=== PATIENT | male | born 1970 | race Caucasian/White ===

== ENCOUNTER → 2017-03-04 | Outpatient (CLI) | payer OTHER ==
[2017-03-04 17:43] LABS: ALBUMIN 3.8 GM/DL (3.2-5.2); ALBUMIN/GLOBULIN RATIO 1.03 (1.00-1.93); ALKALINE PHOSPHATASE 95 U/L (45-117); ALT/SGPT 98 U/L (12-78); ANION GAP 8 MEQ/L (8-16); AST/SGOT 45 U/L (15-37); BILIRUBIN,TOTAL 0.6 MG/DL (0.2-1.0); BLOOD UREA NITROGEN 22 MG/DL (7-18); CALCIUM LEVEL 8.8 MG/DL (8.5-10.1); CARBON DIOXIDE LEVEL 29 MEQ/L (21-32); CHLORIDE LEVEL 102 MEQ/L (98-107); CHOLESTEROL LEVEL 208 MG/DL (<200); GLOMERULAR FILTRATION RATE > 60.0 (>60); GLUCOSE, FASTING 111 MG/DL (70-105); POTASSIUM SERUM 4.2 MEQ/L (3.5-5.1); SODIUM LEVEL 139 MEQ/L (136-145); TOTAL PROTEIN 7.5 GM/DL (6.4-8.2); TRIGLYCERIDES LEVEL 212 MG/DL (<150)
[2017-03-04 17:52] LABS: BASO % 0.6 % (0.0-1.0); EOS # 0.1 K/mm3 (0.0-0.50); EOS % 1.7 % (0.0-3.0); LARGE UNSTAINED CELL # 0.3 K/mm3 (0.0-0.4); LARGE UNSTAINED CELL % 4.4 % (0.0-4.0); LYMPH # 1.9 K/mm3 (1.5-4.5); LYMPH % 25.2 % (24.0-44.0); MEAN CORPUSCULAR HEMOGLOBIN 31.3 pg (27.0-33.0); MEAN CORPUSCULAR HGB CONC 34.7 g/dl (32.0-36.5); MEAN CORPUSCULAR VOLUME 90.3 fl (80.0-96.0); MONO # 0.5 K/mm3 (0.0-0.8); NEUTROPHILS # 4.6 K/mm3 (1.8-7.7); NEUTROPHILS % 61.2 % (36.0-66.0); PLATELET COUNT, AUTOMATED 214 k/mm3 (150-450); RED CELL DISTRIBUTION WIDTH 13.2 % (11.5-14.5); WHITE BLOOD COUNT 7.4 K/mm3 (4.0-10.0)
== END ==
LOC: M WUC 08:17
PROVIDERS: ATTEND Family Medicine Addiction Medicine
DX: I10 Essential (primary) hypertension (principal)

== ENCOUNTER → 2019-03-23 | Outpatient (CLI) | payer OTHER ==
[2019-03-23 11:19] LABS: ALBUMIN 3.6 GM/DL (3.2-5.2); ALT/SGPT 146 U/L (12-78); BILIRUBIN,TOTAL 0.4 MG/DL (0.2-1.0); BLOOD UREA NITROGEN 18 MG/DL (7-18); CALCIUM LEVEL 8.8 MG/DL (8.5-10.1); CARBON DIOXIDE LEVEL 30 MEQ/L (21-32); CHLORIDE LEVEL 104 MEQ/L (98-107); CHOLESTEROL LEVEL 188 MG/DL (<200); CHOLESTEROL RISK RATIO 5.875 (<5); CREATININE FOR GFR 1.27 MG/DL (0.70-1.30); GLOMERULAR FILTRATION RATE > 60.0 (>60); GLUCOSE, FASTING 111 MG/DL (70-100); HDL CHOLESTEROL 32 MG/DL (>40); LDL CHOLESTEROL 107 MG/DL (<100); NON-HDL-C 156 MG/DL; POTASSIUM SERUM 4.5 MEQ/L (3.5-5.1); SODIUM LEVEL 141 MEQ/L (136-145); TOTAL PROTEIN 7.6 GM/DL (6.4-8.2); TRIGLYCERIDES LEVEL 245 MG/DL (<150)
== END ==
LOC: M WUC 08:08
PROVIDERS: ATTEND Family Medicine Addiction Medicine
DX: I10 Essential (primary) hypertension (principal); R53.83 Other fatigue; E66.9 Obesity, unspecified

== ENCOUNTER → 2019-04-30 | Outpatient (REF) | payer OTHER ==
[2019-04-30 13:24] LABS: ALBUMIN 3.7 GM/DL (3.2-5.2); ALT/SGPT 87 U/L (12-78); BILIRUBIN,TOTAL 0.5 MG/DL (0.2-1.0); BLOOD UREA NITROGEN 21 MG/DL (7-18); CARBON DIOXIDE LEVEL 26 MEQ/L (21-32); CHLORIDE LEVEL 105 MEQ/L (98-107); CREATININE FOR GFR 1.33 MG/DL (0.70-1.30); GLOMERULAR FILTRATION RATE > 60.0 (>60); GLUCOSE, FASTING 101 MG/DL (70-100); POTASSIUM SERUM 4.2 MEQ/L (3.5-5.1); SODIUM LEVEL 141 MEQ/L (136-145); TOTAL PROTEIN 7.3 GM/DL (6.4-8.2)
== END ==
LOC: M LAB REF 12:40
PROVIDERS: ATTEND Nurse Practitioner Family
DX: R74.8 Abnormal levels of other serum enzymes (principal)

== ENCOUNTER → 2019-06-07 | Outpatient (REF) | payer OTHER ==
[2019-06-07 16:44] LABS: ALT/SGPT 70 U/L (12-78); CREATININE FOR GFR 1.17 MG/DL (0.70-1.30); GLOMERULAR FILTRATION RATE > 60.0 (>60)
== END ==
LOC: M LAB REF 16:16
PROVIDERS: ATTEND Nurse Practitioner Family
DX: R74.8 Abnormal levels of other serum enzymes (principal); R79.89 Other specified abnormal findings of blood chemistry

== ENCOUNTER → 2020-05-08 | Outpatient (REF) | payer OTHER ==
[2020-05-08 13:30] LABS: ALBUMIN 3.9 GM/DL (3.2-5.2); ALT/SGPT 54 U/L (12-78); BILIRUBIN,TOTAL 0.7 MG/DL (0.2-1.0); BLOOD UREA NITROGEN 22 MG/DL (7-18); CALCIUM LEVEL 9.1 MG/DL (8.5-10.1); CARBON DIOXIDE LEVEL 27 MEQ/L (21-32); CHLORIDE LEVEL 106 MEQ/L (98-107); CHOLESTEROL LEVEL 198 MG/DL (<200); CREATININE FOR GFR 1.16 MG/DL (0.70-1.30); GLOMERULAR FILTRATION RATE > 60.0 (>56); GLUCOSE, FASTING 109 MG/DL (70-100); HDL CHOLESTEROL 33 MG/DL (>40); LDL CHOLESTEROL 132 MG/DL (<100); NON-HDL-C 165 MG/DL; POTASSIUM SERUM 4.7 MEQ/L (3.5-5.1); SODIUM LEVEL 139 MEQ/L (136-145); THYROID STIMULATING HORMONE 0.834 uIU/ML (0.358-3.740); TOTAL PROTEIN 7.6 GM/DL (6.4-8.2); TRIGLYCERIDES LEVEL 167 MG/DL (<150)
== END ==
LOC: M LAB REF 11:18
PROVIDERS: ATTEND Family Medicine Addiction Medicine
DX: F41.1 Generalized anxiety disorder (principal); I10 Essential (primary) hypertension

== ENCOUNTER → 2022-09-30 | Outpatient (REF) | payer OTHER ==
[2022-09-30 13:25] LABS: ALKALINE PHOSPHATASE 89 U/L (46-116); ALT/SGPT 90 U/L (7.0-40); AST/SGOT 45 U/L (<34); BILIRUBIN,TOTAL 0.8 MG/DL (0.3-1.2); BLOOD UREA NITROGEN 32 MG/DL (9-23); CALCIUM LEVEL 9.1 MG/DL (8.5-10.1); CARBON DIOXIDE LEVEL 28 MMOL/L (20-31); CHLORIDE LEVEL 107 MMOL/L (98-107); CHOLESTEROL LEVEL 177 MG/DL (<200); CHOLESTEROL RISK RATIO 5.84 (<5); CREATININE FOR GFR 1.13 MG/DL (0.70-1.30); GLOMERULAR FILTRATION RATE > 60.0 (>56); GLUCOSE, FASTING 103 MG/DL (60-100); HDL CHOLESTEROL 30.3 MG/DL (>40); LDL CHOLESTEROL 113.3 MG/DL (<100); NON-HDL-C 147 MG/DL; POTASSIUM SERUM 4.7 MMOL/L (3.5-5.1); SODIUM LEVEL 141 MMOL/L (136-145); TOTAL PROTEIN 7.5 G/DL (5.7-8.2); TRIGLYCERIDES LEVEL 167 MG/DL (<150)
[2022-09-30 14:07] LABS: HEMOGLOBIN A1c 5.7 % (4.0-6.0)
== END ==
LOC: M LAB REF 11:16
PROVIDERS: ATTEND Family Medicine Addiction Medicine
DX: R73.9 Hyperglycemia, unspecified (principal)

== ENCOUNTER 2023-07-05 08:55 | Observation (INO) | payer OTHER ==
[~2023-07-05] VITALS: Ht 167.6 cm; Wt 111.5 kg
[2023-07-05] MEDS ORDERED: OMEP-173 PO (09:12)
[2023-07-05] MEDS ORDERED: CLON-412 PO (09:12)
[2023-07-05] MEDS ORDERED: LOSA100T46 PO (09:12)
[2023-07-05] MEDS ORDERED: MORPHINE 4 MG/ML 1ML VIAL IV ONE ×2 (10:10→11:45)
[2023-07-05] MEDS ORDERED: NS 1,000 ML IV ONE (10:10)
[2023-07-05] MEDS ORDERED: ONDANSETRON 4MG 2ML VIAL IV ONE (10:10)
[2023-07-05] MEDS ORDERED: FAMOTIDINE 20MG/2ML VIAL IVP ONE (10:10)
[2023-07-05 10:41] LABS: BASO # 0.1 10^3/uL (0.0-0.2); BASO % 0.3 % (0.0-1.0); EOS # 0.1 10^3/uL (0.0-0.5); EOS % 0.4 % (0.0-3.0); HEMATOCRIT 50.4 % (42.0-52.0); HEMOGLOBIN 17.1 g/dl (13.5-17.5); LYMPH # 1.5 10^3/uL (1.5-5.0); LYMPH % 9.1 % (24.0-44.0); MEAN CORPUSCULAR HEMOGLOBIN 28.9 pg (27.0-33.0); MEAN CORPUSCULAR HGB CONC 33.9 g/dl (32.0-36.5); MEAN CORPUSCULAR VOLUME 85.3 fl (80.0-96.0); MONO # 1.4 10^3/uL (0.0-0.8); MONO % 8.7 % (2.0-8.0); NEUTROPHILS # 13.4 10^3/uL (1.5-8.5); NEUTROPHILS % 81.1 % (36.0-66.0); PLATELET COUNT, AUTOMATED 246 10^3/uL (150-450); RED BLOOD COUNT 5.91 10^6/uL (4.30-6.10); WHITE BLOOD COUNT 16.6 10^3/uL (4.0-10.0)
[2023-07-05] MEDS ORDERED: ISOVUE-370 76% 100ML VIAL As Ordered ONE (10:45)
[2023-07-05 11:05] LABS: CK-MB VALUE MASS < 1.0 NG/ML (<3.6); LIPASE 81 U/L (12-53)
[2023-07-05 11:07] LABS: ALBUMIN 3.7 G/DL (3.2-5.2); ALKALINE PHOSPHATASE 96 U/L (46-116); ALT/SGPT 62 U/L (7.0-40); AST/SGOT 23 U/L (<34); BILIRUBIN,DIRECT 0.5 MG/DL (<0.4); BILIRUBIN,TOTAL 1.4 MG/DL (0.3-1.2); BLOOD UREA NITROGEN 15 MG/DL (9-23); CALCIUM LEVEL 9.2 MG/DL (8.5-10.1); CARBON DIOXIDE LEVEL 30 MMOL/L (20-31); CHLORIDE LEVEL 102 MMOL/L (98-107); CPK CREATINE PHOSPHOKINASE 125 U/L (46-171); CREATININE FOR GFR 1.04 MG/DL (0.70-1.30); GLOMERULAR FILTRATION RATE > 60.0 (>56); GLUCOSE, FASTING 117 MG/DL (60-100); POTASSIUM SERUM 4.2 MMOL/L (3.5-5.1); SODIUM LEVEL 140 MMOL/L (136-145); TOTAL PROTEIN 7.9 G/DL (5.7-8.2)
[2023-07-05] MEDS ORDERED: MED REC IN PROGRESS XX SCH (11:55)
[2023-07-05] MEDS ORDERED: HOME MED LIST COMPLETE! XX SCH (12:10)
[2023-07-05] MEDS ORDERED: ONDANSETRON 4MG 2ML VIAL IV PRN (12:10)
[2023-07-05] MEDS ORDERED: MORPHINE 1MG/ML IN 0.9% NACL 100ML IV BAG IV PRN (12:15)
[2023-07-05] MEDS ORDERED: NS 1,000 ML IV SCH (12:15)
[2023-07-05] MEDS ORDERED: EPIDURAL/PCA KEYS XX PRN (12:15)
[2023-07-05] MEDS ORDERED: diphenhydrAMINE 50MG/ML VIAL IV PRN (12:15)
[2023-07-05] MEDS ORDERED: NALOXONE INJ 0.4MG/1ML VIAL IV PRN (12:15)
[2023-07-05 12:59] LABS: CHOLESTEROL LEVEL 171 MG/DL (<200); CHOLESTEROL RISK RATIO 5.18 (<5); LDL CHOLESTEROL 117.2 MG/DL (<100); TRIGLYCERIDES LEVEL 104 MG/DL (<150)
[2023-07-05] MEDS: NS 1,000 ML IV SCH ×2 (14:28→16:07)
[2023-07-05] MEDS: KETOROLAC 30 MG/ML 1ML VIAL IV SCH ×3 (14:29→23:47)
[2023-07-05 15:15] VITALS: BP 138/78; TEMP 97.3; O2SAT 96
[2023-07-05] MEDS: D5W/0.45% SODIUM CHLORIDE 1,000 ML IV SCH (19:45)
[2023-07-05] MEDS ORDERED: cloNIDine 0.1MG TABLET PO SCH (21:00)
[2023-07-05 21:31] VITALS: BP 130/72; TEMP 98.6; O2SAT 95
[2023-07-06] MEDS: D5W/0.45% SODIUM CHLORIDE 1,000 ML IV SCH ×3 (02:15→10:50)
[2023-07-06 05:05] VITALS: BP 111/60; TEMP 97.5; O2SAT 95
[2023-07-06 06:10] LABS: MEAN CORPUSCULAR HEMOGLOBIN 29.6 pg (27.0-33.0); MEAN CORPUSCULAR HGB CONC 33.5 g/dl (32.0-36.5); MEAN CORPUSCULAR VOLUME 88.3 fl (80.0-96.0); PLATELET COUNT, AUTOMATED 201 10^3/uL (150-450); RED BLOOD COUNT 4.53 10^6/uL (4.30-6.10)
[2023-07-06] MEDS: KETOROLAC 30 MG/ML 1ML VIAL IV SCH ×2 (06:18→13:09)
[2023-07-06 06:25] LABS: HEMOGLOBIN 13.4 g/dl (13.5-17.5)
[2023-07-06 06:44] LABS: ALBUMIN 2.6 G/DL (3.2-5.2); ALKALINE PHOSPHATASE 68 U/L (46-116); ALT/SGPT 40 U/L (7.0-40); AST/SGOT 16 U/L (<34); BILIRUBIN,TOTAL 0.9 MG/DL (0.3-1.2); BLOOD UREA NITROGEN 16 MG/DL (9-23); CARBON DIOXIDE LEVEL 30 MMOL/L (20-31); CHLORIDE LEVEL 107 MMOL/L (98-107); CREATININE FOR GFR 1.06 MG/DL (0.70-1.30); GLOMERULAR FILTRATION RATE > 60.0 (>56); GLUCOSE, FASTING 118 MG/DL (60-100); POTASSIUM SERUM 4.4 MMOL/L (3.5-5.1); SODIUM LEVEL 142 MMOL/L (136-145); TOTAL PROTEIN 5.9 G/DL (5.7-8.2)
[2023-07-06 08:17] LABS: LIPASE 56 U/L (12-53)
[2023-07-06] MEDS ORDERED: ENOXAPARIN 40MG/0.4ML SYRINGE (J1650 PER 10MG) SC SCH (09:00)
[2023-07-06] MEDS ORDERED: LOSARTAN 50MG TABLET PO SCH (09:00)
[2023-07-06 10:06] VITALS: BP 131/70
[2023-07-06 14:00] VITALS: BP 129/76; TEMP 98.2; O2SAT 95
[2023-07-06] MEDS ORDERED: OXYC1TAB23 PO (15:55)
[2023-07-06] MEDS ORDERED: SENO8.6T10 PO (15:55)
== END 2023-07-06 17:00 | disposition home or self-care (01) ==
LOC: M ED 08:55 → M ED INP 11:57 → INTOOBSV 11:57 → ENRESERV 14:04 → M MS4PR 15:10
PROVIDERS: ADMIT General Practice; ATTEND General Practice
DX: K85.90 Acute pancreatitis without necrosis or infection, unspecified (principal); E66.01 Morbid (severe) obesity due to excess calories; I10 Essential (primary) hypertension; Z79.899 Other long term (current) drug therapy
CPT/HCPCS: 36415; 71046; 74177; 74181; 78226; 80047; 80048; 80053; 80061; 80076; 82550; 82553; 83605; 83690; 84484; 85025; 85027; 87486; 87581; 87633; 87798; 93005; 96361; 96372; 96374; 96375; 96376; 99284; A9537; J1650; J1885; J2405; Q9967; S0028

== ENCOUNTER → 2023-10-16 | Outpatient (REF) | payer OTHER ==
[~2023-10-16] MED LIST: CLON-412 PO; LOSA100T46 PO; OMEP-173 PO; OXYC1TAB23 PO; SENO8.6T10 PO
[2023-10-16 12:43] LABS: HEMOGLOBIN A1c 5.5 % (4.0-6.0)
[2023-10-16 12:44] LABS: ALBUMIN 3.4 G/DL (3.2-5.2); ALKALINE PHOSPHATASE 97 U/L (46-116); ALT/SGPT 39 U/L (7.0-40); AST/SGOT 20 U/L (<34); BILIRUBIN,TOTAL 0.4 MG/DL (0.3-1.2); BLOOD UREA NITROGEN 19 MG/DL (9-23); CALCIUM LEVEL 8.6 MG/DL (8.5-10.1); CARBON DIOXIDE LEVEL 29 MMOL/L (20-31); CHLORIDE LEVEL 106 MMOL/L (98-107); CHOLESTEROL LEVEL 145 MG/DL (<200); CHOLESTEROL RISK RATIO 4.89 (<5); CREATININE FOR GFR 1.06 MG/DL (0.70-1.30); GLOMERULAR FILTRATION RATE > 60.0 (>56); GLUCOSE, FASTING 109 MG/DL (60-100); HDL CHOLESTEROL 29.6 MG/DL (>40); LDL CHOLESTEROL 95.6 MG/DL (<100); NON-HDL-C 115.4 MG/DL; POTASSIUM SERUM 4.3 MMOL/L (3.5-5.1); SODIUM LEVEL 141 MMOL/L (136-145); TOTAL PROTEIN 6.7 G/DL (5.7-8.2); TRIGLYCERIDES LEVEL 99 MG/DL (<150)
[2023-10-16 12:46] LABS: THYROID STIMULATING HORMONE 0.942 uIU/ML (0.55-4.78)
== END ==
LOC: M LAB REF 10:53
PROVIDERS: ATTEND Family Medicine Addiction Medicine
DX: R73.9 Hyperglycemia, unspecified (principal)

== ENCOUNTER → 2023-12-12 | Outpatient (REF) | payer OTHER ==
[2023-12-12 14:18] LABS: BASO # 0.1 10^3/uL (0.0-0.2); BASO % 0.6 % (0.0-1.0); EOS # 0.1 10^3/uL (0.0-0.5); EOS % 0.9 % (0.0-3.0); HEMATOCRIT 47.5 % (42.0-52.0); IRON (FE) 61 UG/DL (65-175); LYMPH # 1.9 10^3/uL (1.5-5.0); LYMPH % 23.5 % (24.0-44.0); MEAN CORPUSCULAR HEMOGLOBIN 29.7 pg (27.0-33.0); MEAN CORPUSCULAR HGB CONC 33.7 g/dl (32.0-36.5); MEAN CORPUSCULAR VOLUME 88.3 fl (80.0-96.0); MONO # 0.7 10^3/uL (0.0-0.8); MONO % 9.2 % (2.0-8.0); NEUTROPHILS # 5.2 10^3/uL (1.5-8.5); NEUTROPHILS % 65.4 % (36.0-66.0); PLATELET COUNT, AUTOMATED 200 10^3/uL (150-450); RED BLOOD COUNT 5.38 10^6/uL (4.30-6.10)
[2023-12-12 14:19] LABS: ALBUMIN 3.5 G/DL (3.2-5.2); ALKALINE PHOSPHATASE 109 U/L (46-116); ALT/SGPT 37 U/L (7.0-40); AST/SGOT 23 U/L (<34); BILIRUBIN,TOTAL 0.6 MG/DL (0.3-1.2); BLOOD UREA NITROGEN 18 MG/DL (9-23); CALCIUM LEVEL 8.6 MG/DL (8.5-10.1); CARBON DIOXIDE LEVEL 26 MMOL/L (20-31); CHLORIDE LEVEL 107 MMOL/L (98-107); CHOLESTEROL LEVEL 172 MG/DL (<200); CHOLESTEROL RISK RATIO 5.77 (<5); CREATININE FOR GFR 1.05 MG/DL (0.70-1.30); GLOMERULAR FILTRATION RATE > 60.0 (>56); GLUCOSE, FASTING 103 MG/DL (60-100); HDL CHOLESTEROL 29.8 MG/DL (>40); LDL CHOLESTEROL 111.6 MG/DL (<100); NON-HDL-C 142.2 MG/DL; POTASSIUM SERUM 4.5 MMOL/L (3.5-5.1); SODIUM LEVEL 142 MMOL/L (136-145); TRIGLYCERIDES LEVEL 153 MG/DL (<150)
[2023-12-12 16:59] LABS: HEMOGLOBIN A1c 5.3 % (4.0-6.0)
== END ==
LOC: M LAB REF 12:57
PROVIDERS: ATTEND Family Medicine Addiction Medicine
DX: R73.9 Hyperglycemia, unspecified (principal); D64.9 Anemia, unspecified

== ENCOUNTER 2024-04-14 12:55 | Emergency (ER) | payer OTHER ==
[~2024-04-14] VITALS: Ht 167.6 cm; Wt 106.1 kg
[2024-04-14] MEDS: DERMABOND TOPICAL SKIN ADHESIVE TOP ONE (15:26)
[2024-04-14] MEDS: BOOSTRIX VACCINE (TETANUS/DIPHTH/ACEL. PERTUSSIS) 0.5ML SYR IM.IMMUN ONE (15:27)
[2024-04-14] MEDS ORDERED: CEPH500C PO (15:49)
[2024-04-14] MEDS: CEPHALEXIN 500 MG CAP PO ONE (15:55)
[2024-04-14 16:30] VITALS: BP 139/85; TEMP 97.7; O2SAT 99
== END 2024-04-14 16:33 | disposition home or self-care (01) ==
LOC: M ED 12:55
DX: S61.012A Laceration without foreign body of left thumb without damage to nail, initial encounter (principal); W26.8XXA Contact with other sharp object(s), not elsewhere classified, initial encounter; Y92.9 Unspecified place or not applicable; Y93.9 Activity, unspecified; Y99.0 Civilian activity done for income or pay; I10 Essential (primary) hypertension; K21.9 Gastro-esophageal reflux disease without esophagitis; Z79.899 Other long term (current) drug therapy

== ENCOUNTER 2024-06-05 16:15 | Emergency (ER) | payer OTHER ==
[~2024-06-05] VITALS: Ht 167.6 cm; Wt 104.0 kg
[~2024-06-05 16:15] MED LIST changes: +CEPH500C PO
[2024-06-05 19:08] VITALS: BP 176/98; TEMP 96.9; O2SAT 97
[2024-06-05] MEDS: IBUPROFEN 600MG TAB PO ONE (19:23)
[2024-06-05] MEDS: ACETAMINOPHEN 500 MG TAB PO ONE (19:23)
== END 2024-06-05 19:37 | disposition home or self-care (01) ==
LOC: M ED 16:15
DX: S83.91XA Sprain of unspecified site of right knee, initial encounter (principal); X58.XXXA Exposure to other specified factors, initial encounter; Y92.9 Unspecified place or not applicable; Y93.01 Activity, walking, marching and hiking; Y99.0 Civilian activity done for income or pay; I10 Essential (primary) hypertension; F41.9 Anxiety disorder, unspecified; Z79.899 Other long term (current) drug therapy

== ENCOUNTER → 2024-06-27 | Outpatient (REF) | payer OTHER ==
[2024-06-27 14:49] LABS: ALBUMIN 3.6 G/DL (3.2-5.2); ALKALINE PHOSPHATASE 99 U/L (40-129); ALT/SGPT 38 U/L (7.0-40); AST/SGOT 21 U/L (<34); BILIRUBIN,TOTAL 0.7 MG/DL (0.3-1.2); BLOOD UREA NITROGEN 23 MG/DL (9-23); CALCIUM LEVEL 9.3 MG/DL (8.5-10.1); CARBON DIOXIDE LEVEL 27 MMOL/L (20-31); CHLORIDE LEVEL 105 MMOL/L (98-107); CHOLESTEROL LEVEL 206 MG/DL (<200); CHOLESTEROL RISK RATIO 6.56 (<5); GLOMERULAR FILTRATION RATE > 60.0 (>56); GLUCOSE, FASTING 107 MG/DL (60-100); HDL CHOLESTEROL 31.4 MG/DL (>40); LDL CHOLESTEROL 141.2 MG/DL (<100); NON-HDL-C 174.6 MG/DL; POTASSIUM SERUM 4.3 MMOL/L (3.5-5.1); SODIUM LEVEL 140 MMOL/L (136-145); TOTAL PROTEIN 7.5 G/DL (5.7-8.2); TRIGLYCERIDES LEVEL 167 MG/DL (<150)
[2024-06-27 14:51] LABS: THYROID STIMULATING HORMONE 1.756 uIU/ML (0.55-4.78)
== END ==
LOC: M LAB REF 13:19
PROVIDERS: ATTEND Family Medicine Addiction Medicine
DX: I10 Essential (primary) hypertension (principal)

== ENCOUNTER 2024-08-05 10:41 | Outpatient (RCR) | payer OTHER | END 2024-08-06 | LOC: M PT 10:41 | PROVIDERS: ATTEND Physician Assistant | DX: M25.561 Pain in right knee (principal) ==

== ENCOUNTER 2024-09-02 10:40 | Outpatient (RCR) | payer OTHER | END 2024-09-06 | LOC: M PT 10:40 | PROVIDERS: ATTEND Physician Assistant | DX: M25.561 Pain in right knee (principal) ==

== ENCOUNTER → 2024-10-10 | Outpatient (CLI) | payer OTHER | LOC: M PLAIMG 10:55 | PROVIDERS: ATTEND Physician Assistant | DX: M25.561 Pain in right knee (principal); R93.7 Abnormal findings on diagnostic imaging of other parts of musculoskeletal system ==

== ENCOUNTER → 2025-03-06 | Outpatient (REF) | payer OTHER ==
[2025-03-06 13:10] LABS: ALT/SGPT 38.0 U/L (7.0-40); AST/SGOT 27.0 U/L (<34); CALCIUM LEVEL 9.0 MG/DL (8.5-10.1); CARBON DIOXIDE LEVEL 27.0 MMOL/L (20-31); CHLORIDE LEVEL 105.0 MMOL/L (98-107); CHOLESTEROL LEVEL 160.0 MG/DL (<200); CHOLESTEROL RISK RATIO 5.77 (<5); CREATININE FOR GFR 1.09 MG/DL (0.70-1.30); GLOMERULAR FILTRATION RATE 80.7 (>56); LDL CHOLESTEROL 100.1 MG/DL (<100); NON-HDL-C 132.3 MG/DL; POTASSIUM SERUM 4.4 MMOL/L (3.5-5.1); SODIUM LEVEL 144.0 MMOL/L (136-145); TRIGLYCERIDES LEVEL 161.0 MG/DL (<150)
[2025-03-06 13:37] LABS: ESTIMATED AVERAGE GLUCOSE 108.0 MG/DL (60-110)
== END ==
LOC: M LAB REF 12:22
PROVIDERS: ATTEND Family Medicine Addiction Medicine
DX: R73.9 Hyperglycemia, unspecified (principal)

== ENCOUNTER 2025-06-04 11:05 | Day surgery (SDC) | payer OTHER ==
[~2025-06-04] VITALS: Ht 167.6 cm; Wt 99.1 kg
[~2025-06-04 11:05] MED LIST changes: +ACET-907 PO; +LIDOCAINE 2% 100 MG/5 ML SDV (FOR ANES.) As Ordered ONE; +NAPR-885 PO
[2025-06-04 13:34] VITALS: TEMP 98.2
[2025-06-04 13:55] VITALS: BP 124/91; O2SAT 96
== END 2025-06-04 14:10 | disposition home or self-care (01) ==
LOC: M OPP 11:05
PROVIDERS: ATTEND Surgery
DX: Z12.11 Encounter for screening for malignant neoplasm of colon (principal); K31.89 Other diseases of stomach and duodenum; B96.81 Helicobacter pylori [H. pylori] as the cause of diseases classified elsewhere; K30 Functional dyspepsia; Z87.891 Personal history of nicotine dependence

== ENCOUNTER → 2025-06-05 | Outpatient (CLI) | payer OTHER ==
[~2025-06-05] MED LIST changes: -LIDOCAINE 2% 100 MG/5 ML SDV (FOR ANES.) As Ordered ONE
== END ==
LOC: M SOG 07:20
PROVIDERS: ATTEND Physician Assistant
DX: M25.561 Pain in right knee (principal)